=== PATIENT | male | born 1935 | race Caucasian/White ===

== ENCOUNTER 2021-09-01 09:59 | Emergency (ER) | payer MEDICARE, BC ==
[~2021-09-01] VITALS: Ht 172.7 cm; Wt 83.7 kg
[2021-09-01 11:08] LABS: BASOPHILS # (AUTO) 0.2 X10'3 (0-0.2); BASOPHILS % (AUTO) 0.2 % (0-1); EOSINOPHILS # (AUTO) 0.2 X10'3 (0-0.9); EOSINOPHILS % (AUTO) 0.2 % (0-6); HEMATOCRIT 34.5 % (42.0-52.0); LYMPHOCYTES # (AUTO) 95.1 X10'3 (1.1-4.8); LYMPHOCYTES % (AUTO) 95.4 % (21-51); MEAN CORPUSCULAR HEMOGLOBIN 34.5 PG (27.0-31.0); MEAN CORPUSCULAR VOLUME 107.8 FL (78-98); MEAN PLATELET VOLUME 8.4 FL (7.4-10.4); MONOCYTES # (AUTO) 1.8 X10'3 (0-0.9); MONOCYTES % (AUTO) 1.8 % (2-12); NEUTROPHILS # (AUTO) 2.4 X10'3 (1.8-7.7); NEUTROPHILS % (AUTO) 2.4 % (42-75); PLATELET COUNT 78 X10'3 (140-440); RED CELL DISTRIBUTION WIDTH 16.3 % (11.5-14.5)
[2021-09-01 11:10] LABS: WHITE BLOOD COUNT 99.6 X10'3 (4.5-11.0)
[2021-09-01 11:13] LABS: APTT 26 SECONDS (22-32)
[2021-09-01 11:15] LABS: ALANINE AMINOTRANSFERASE 27 U/L (12-78); ALBUMIN 3.6 G/DL (3.4-5.0); ALBUMIN/GLOBULIN RATIO 0.9 (1.1-1.5); ALKALINE PHOSPHATASE 114 IU/L (46-116); ANION GAP 11 (8-16); ASPARTATE AMINO TRANSFERASE 27 U/L (10-37); BILIRUBIN,TOTAL 0.5 MG/DL (0.1-1.0); BLOOD UREA NITROGEN 21 MG/DL (7-18); BUN/CREATININE RATIO 20.8 (5.4-32.0); CALCIUM 9.2 MG/DL (8.5-10.1); CHLORIDE 106 MMOL/L (99-107); CREATININE 1.01 MG/DL (0.60-1.10); GLUCOSE 103 MG/DL (70-104); POTASSIUM 4.4 MMOL/L (3.5-5.1); SODIUM 141 MMOL/L (135-145); TOTAL CARBON DIOXIDE 24.2 MMOL/L (24-32); TOTAL PROTEIN 7.4 G/DL (6.4-8.2); eGFR 70 ML/MIN
[2021-09-01 11:48] LABS: ANISOCYTOSIS 1+; PLATELET ESTIMATE DECREASED; TOTAL CELLS COUNTED 100
[2021-09-01 11:50] LABS: SMUDGE CELLS 2+
[2021-09-01] MEDS ORDERED: LEVO50TA8 PO (13:24)
[2021-09-01] MEDS ORDERED: CELE-193 PO (13:24)
[2021-09-01] MEDS ORDERED: METF-436 PO (13:24)
[2021-09-01] MEDS ORDERED: FLUT16SP2 BOTHNARES (13:24)
[2021-09-01 14:20] VITALS: BP 140/74
--- NOTE | 2021-09-01 14:55 | NUR ---
NOTIFIED CHILD FAMILY AND PT WANT TO LEAVE THE HOSPITAL PER MD WE NEED TELE NEURO CONSULT AND HE WILL TALK TO THE PT AND FAMILY.
--- NOTE | 2021-09-01 15:00 | NUR ---
AT THE BEDSIDE.
== END 2021-09-01 15:20 | disposition home or self-care (01) ==
LOC: ER 10:00
DX: R53.1 Weakness (principal); R47.81 Slurred speech; R35.89 Other polyuria; C85.90 Non-Hodgkin lymphoma, unspecified, unspecified site; R25.2 Cramp and spasm; E78.00 Pure hypercholesterolemia, unspecified; Z90.49 Acquired absence of other specified parts of digestive tract; R22.42 Localized swelling, mass and lump, left lower limb; Z79.2 Long term (current) use of antibiotics; Z79.899 Other long term (current) drug therapy
CPT/HCPCS: 36415; 70450; 71045; 73610; 80053; 82948; 84484; 85007; 85025; 85610; 85730; 93005; 93971; 99285